=== PATIENT | male | born 1985 | race Caucasian/White ===

== ENCOUNTER 2017-03-24 22:08 | Emergency (ER) | payer OTHER ==
[~2017-03-24] VITALS: Ht 172.7 cm; Wt 75.0 kg
[2017-03-24 22:41] LABS: APPEARANCE,URINE CLEAR (CLEAR); BILIRUBIN,URINE NEGATIVE (NEGATIVE); GLUCOSE, URINE (UA) NEGATIVE (NEGATIVE); KETONES,URINE NEGATIVE (NEGATIVE); LEUKOCYTE ESTERASE ,URINE NEGATIVE (NEGATIVE); NITRATE,URINE NEGATIVE (NEGATIVE); OCCULT BLOOD,URINE SMALL (NEGATIVE); PH,URINE 5.5 (5.0-8.0); PROTEIN,URINE NEGATIVE (NEGATIVE); UROBILINOGEN,URINE 0.2 mg/dL (<=1.0)
[2017-03-24 23:05] LABS: BACTERIA,URINE None Seen /HPF (None Seen); SQUAMOUS EPITHELIAL CELL,UR Rare /LPF (None Seen); WBC,URINE 0-2 /HPF (0-5)
[2017-03-25] MEDS ORDERED: CefTRIAXone SODIUM 1 GM/VIAL IM ONE
[2017-03-25] MEDS ORDERED: AZITHROMYCIN 250 MG TABLET PO ONE
[2017-03-25 00:08] VITALS: BP 111/62
== END 2017-03-25 00:19 | disposition home or self-care (01) ==
LOC: EMS 22:11
DX: N34.2 Other urethritis (principal); K08.89 Other specified disorders of teeth and supporting structures
CPT/HCPCS: 81001; 96372; 99283; J0696